=== PATIENT | male | born 1940 | race Caucasian/White ===

== ENCOUNTER → 2022-03-31 09:22 | Outpatient (BNVA) | payer OTHER, SELFPAY | PROVIDERS: PCP Internal Medicine; Visit Provider Psychiatry & Neurology Neurology | DX: G20 Parkinson's disease (principal) ==

== ENCOUNTER 2022-09-28 15:30 | Outpatient (AMB) | payer OTHER, SELFPAY ==
[2022-09-28 15:34] VITALS: BP 110/78; PULSE 94; O2SAT 98; BMI 26.5
--- NOTE | 2022-09-28 15:34 | MHC.OFFVIS ---
Intake Vital Signs 09/28/22 15:34 Height 5 ft 10 in Weight 185 lb BMI 26.5 BP 110/78 Blood Pressure Location Rt brachial Position Sitting Pulse 94 Pulse Source Pulse Oximeter Pulse Oximetry (%) 98 Oxygen Delivery Method Room Air Intake Visit Reasons: 6m follow up-confirmed Intake Note: Patient p;resents for follow up Allergies No Known Allergies [No Known Allergies*] Allergy (Unverified 09/28/22 15:35) Medication List - Last Reconciled 09/28/22 by Donya Burgos MD apixaban (Eliquis) 5 mg PO BID carbidopa-levodopa 25-100 mg 1 tab PO QID mecobalamin (vitamin B12) 1,000 mcg PO DAILY metformin 850 mg PO TID HPI HPI Comments History of Present Illness Details 81 y/o male with parkinsons disease comes for follow up . No change since last visit. He had 1 fall in a store - tripped on something on the floor. He is doing well on sinemet 25/100 qid. His main symptom was right UE tremors. He denies memory issues. He denies REM behavior disorder. He guzman sloud snoring but sleeps good. Mood is stable He is motivated. He denies drooling, voice is softer. He is slower in dressing showering and using utensils. Handwriting is good. Gait is slower He has occasional constipation.He denies hallucinations. No dizziness since his lisinopril was discontinued. [facility] Medical History Arthritis Diabetes Snoring Surgical History History of appendectomy Social History Alcohol intake: never Patient Tobacco Use Status: Never used Tobacco Physical Exam Vital Signs: Last Vital Signs Pulse 94 09/28/22 15:34 BP 110/78 09/28/22 15:34 Pulse Ox 98 09/28/22 15:34 Oxygen Delivery Method Room Air 09/28/22 15:34 BMI result Body Mass Index 26.5 Const Orientation/consciousness: patient oriented x3 Eyes Pupils: Equal, round and reactive pupils present Neuro Other: moderate decreased blink and facial expression No tremors Chandan Ue cog wheel rigidity L>R FFM and foot taps decreased moderately L>R Gait- slow, no arm swing on left stopped Speech- hypophonia and dysprosody General: patient oriented x3, moves all extremities and no focal motor deficits Cranial nerves: Yes Facial sensation intact/muscles of mastication intact, Yes Equal, round and reactive pupils present, Yes Bilaterally intact EOM present, Yes Nystagmus not present, Yes Normal facial strength present, Yes Midline tongue present, Yes Symmetric palate elevation present and Yes Ability to bilaterally elevate shoulders present Cognition (Neuro): normal cognition Motor exam (neuro): 5/5 motor strength present throughout Coordination: [id number] test normal Assessment & Plan Assessment & Plan (1) Idiopathic Parkinson's disease: Code(s): G20 - Parkinson's disease (2) Snoring: Code(s): R06.83 - Snoring Plan Sinemet 25/100 qid PT for gait and balance Will consider home sleep test Increase fluid intake Coding Level of Care Code Est Pt Level 4 (04116) Diagnoses Idiopathic Parkinson's disease G20 Snoring R06.83
== END 2022-09-28 15:52 | disposition home or self-care (01) ==
LOC: HO.HSM 15:30
PROVIDERS: PCP Internal Medicine; Visit Provider Psychiatry & Neurology Neurology
DX: G20 Parkinson's disease (principal); R06.83 Snoring
CPT/HCPCS: 99214

== ENCOUNTER → 2022-09-28 15:30 | Outpatient (BNVA) | payer OTHER, SELFPAY | PROVIDERS: PCP Internal Medicine; Visit Provider Psychiatry & Neurology Neurology | DX: G20 Parkinson's disease (principal) ==

== ENCOUNTER 2023-04-03 13:24 | Outpatient (AMB) | payer OTHER, SELFPAY ==
--- NOTE | 2023-04-03 13:37 | A.OFFVIS_ITS ---
Intake Vital Signs 04/03/23 13:40 Height 5 ft 10 in Weight 187 lb 6 oz BMI 26.9 BP 106/70 Blood Pressure Location Rt brachial Position Sitting Respiration 16 Pulse 96 Pulse Source Pulse Oximeter Pulse Oximetry (%) 98 Oxygen Delivery Method Room Air Intake Visit Reasons: 6m follow up - VM full unable to Conf. Intake Note: Pt presents to the office for a 6 month follow up for Parkinson's. Pt reports he's had more falls lately. I feel like I'm slowing down . Aerophysicist Required: No Allergies No Known Allergies [No Known Allergies*] Allergy (Unverified 04/03/23 13:38) Medication List - Last Reconciled 04/03/23 by Donya Burgos MD apixaban (Eliquis) 5 mg PO BID carbidopa-levodopa 25-100 mg 1 tab PO QID mecobalamin (vitamin B12) 1,000 mcg PO DAILY metformin 850 mg PO TID HPI HPI Comments History of Present Illness Details 82 y/o male with parkinsons disease come s for follow up .He had 2 falls in the past 4 mths . Both the falls were when he was wearing a boot for blisters in his right foot. He is doing well on sinemet 25/100 qid. His main symptom was right UE tremors. He denies memory issues. He denies REM behavior disorder. He guzman sloud snoring but sleeps good. Mood is stable He is motivated. He denies drooling, voice is softer. He is slower in dressing showering and using utensils. Handwriting is good. Gait is slower He has occasional constipation.He denies hallucinations. No dizziness since his lisinopril was discontinued. [facility] Medical History Snoring Arthritis Diabetes Surgical History History of appendectomy Social History Alcohol intake: never Patient Tobacco Use Status: Never used Tobacco Physical Exam Vital Signs: Last Vital Signs Pulse 96 04/03/23 13:40 Resp 16 04/03/23 13:40 BP 106/70 04/03/23 13:40 Pulse Ox 98 04/03/23 13:40 Oxygen Delivery Method Room Air 04/03/23 13:40 BMI result Body Mass Index 26.9 Const Orientation/consciousness: patient oriented x3 Eyes Pupils: Equal, round and reactive pupils present Neuro Other: moderate decreased blink and facial expression No tremors Chandan Ue cog wheel rigidity L>R FFM and foot taps decreased moderately L>R Gait- slow, no arm swing on left stopped Speech- hypophonia and dysprosody General: patient oriented x3, moves all extremities and no focal motor deficits Cranial nerves: Yes Facial sensation intact/muscles of mastication intact, Yes Equal, round and reactive pupils present, Yes Bilaterally intact EOM present, Yes Nystagmus not present, Yes Normal facial strength present, Yes Midline tongue present, Yes Symmetric palate elevation present and Yes Ability to bilaterally elevate shoulders present Cognition (Neuro): normal cognition Motor exam (neuro): 5/5 motor strength present throughout Coordination: [id number] test normal Assessment & Plan Assessment & Plan (1) Idiopathic Parkinson's disease: Code(s): G20 - Parkinson's disease (2) Snoring: Code(s): R06.83 - Snoring Plan Sinemet 25/100 qid PT for gait and balance Will consider home sleep test Increase fluid intake Orders: Orders PT Evaluation and Treatment Today G20 - Parkinson's disease Coding Level of Care Code Est Pt Level 4 (73183) Diagnoses Idiopathic Parkinson's disease G20 Snoring R06.83
[2023-04-03 13:40] VITALS: BP 106/70; PULSE 96; RESP 16; O2SAT 98; BMI 26.9
== END 2023-04-03 13:58 | disposition home or self-care (01) ==
PROVIDERS: PCP Internal Medicine; Visit Provider Psychiatry & Neurology Neurology
DX: G20.A1 Parkinson's disease without dyskinesia, without mention of fluctuations (principal); R29.6 Repeated falls; R06.83 Snoring
CPT/HCPCS: 99214

== ENCOUNTER → 2023-04-03 13:24 | Outpatient (BNVA) | payer OTHER, SELFPAY | PROVIDERS: PCP Internal Medicine; Visit Provider Psychiatry & Neurology Neurology | DX: R06.83 Snoring (principal) ==

== ENCOUNTER 2023-06-21 13:00 | Outpatient (RCR) | payer OTHER, SELFPAY ==
--- NOTE | 2023-06-06 16:20 | MHC.PT.EP ---
[facility] [place] Office [place] Office [place] Office [address] Casey Smith [address] [phone] F: [phone] F: [phone] F: [phone] F: [phone] Physical Therapy Plan of Care Date of Evaluation: 06/06/23 Date of Surgery: Diagnosis: This is an 82 yo male presenting to skilled PT with a script for PD, gait and balance. Assessment: This is an 82 yo male presenting to skilled PT with a script for PD, gait and balance. He reports 3 falls in the past 6 months. Two out of the three landed him in the ER with head injuries. His falls are from tripping mainly. 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 However in the past few years he has gotten very sedentary and feels like his BUE and BLE's are weak (L>R). He also reports some slight tremors in UE's. He does not use an AD but does report that he feels good holding onto a carriage in the grocery store. He has some aches and pains that mainly include his low back, pain is centralized and achy. Assessment reveals pain that ranges from up to a 6/10 at the worst. Patient demos decreased BLE ROM, strength of B LE's, impaired balance as evidenced by multiple outcome measures, impaired gait pattern and impaired posture with forward head and rounded shoulders. Based on functional limitations, impaired QOL and pain tolerance patient is a good candidate for skilled PT 2x/wk for 4wks. Frequency and Duration: The patient will be seen 2x/wk for 4wks Short Term Goals: I in HEP of BIG program at home on own when not at PT Demo good understanding of safety techniques with transfers, ambulation and stairs without evidence of falls Digital Printer Goals: Improve Greg SOPT times to 20 sec in all categories I with final HEP demonstrating safe techniques and good carryover Report 50% improvement in balance and strength Improve MMT by at least 1 grade for BLE's Treatment Plan: Modalities to reduce pain, spasms and effusion. Manual therapy to restore motion and function. Therapeutic exercise to improve strength and flexibility. Neuromuscular re-education for posture and balance. Therapeutic activities to return to functional activities of daily living. Electronically signed by: Starr Reeder PT Please sign and return to therapist. Thank you for your referral.
--- NOTE | 2023-07-26 11:36 | MHC.PT.DC ---
[facility] [place] Office [place] Office [address] Casey Smith [address] [phone] F: [phone] F: [phone] F: [phone] F: [phone] Physical Therapy Discharge Report Diagnosis: This is an 82 yo male presenting to skilled PT with a script for PD, gait and balance. Date of Surgery: Date of Evaluation: 06/06/23 Date of Discharge: 07/26/23 Treatments to Date: 4 Cancellations to Date: 0 No Shows to Date: 0 Discharge Status: Independent with HEP Patient Elected to Stop Discharge Summary: Patient came to PT eval and 3 additional visits. He had a fall and was following up with his PCP so PT was put on hold. Patient did not return to PT so chart was closed after 30 days. DC to HEP. Electronically signed by: Starr Reeder PT Please sign and return to therapist. Thank you for your referral.
== END 2023-07-26 11:37 | disposition home or self-care (01) ==
LOC: HO.PTCHIC 13:00
PROVIDERS: PCP Internal Medicine; Visit Provider Psychiatry & Neurology Neurology
DX: G20.A1 Parkinson's disease without dyskinesia, without mention of fluctuations (principal)
CPT/HCPCS: 97110; 97112; 97162

== ENCOUNTER 2023-10-06 11:35 | Outpatient (AMB) | payer OTHER, SELFPAY ==
--- NOTE | 2023-10-06 11:36 | MHC.OFFVIS ---
Vital Signs 10/06/23 11:41 Height 5 ft 10 in Weight 178 lb BMI 25.5 BP 112/62 Blood Pressure Location Lt brachial Position Sitting Pulse 95 Pulse Source Pulse Oximeter Pulse Oximetry (%) 98 Oxygen Delivery Method Room Air Intake Visit Reasons: f/u appt - Confirmed Intake Note: Patient presents for f/u. Feeling weak in the arms and legs. Having trouble sleeping at night. Allergies No Known Allergies [No Known Allergies*] Allergy (Verified 10/06/23 11:40) Medication List - Last Reconciled 10/06/23 by Donya Burgos MD apixaban (Eliquis) 5 mg PO BID carbidopa-levodopa 25-100 mg 2-1-2-1 tab(s), max 6 tabs per day, orally .; 30 days mecobalamin (vitamin B12) 1,000 mcg PO DAILY melatonin 3 mg PO BEDTIME metformin 850 mg PO TID HPI Comments Details: 82 y/o male with parkinsons disease comes for follow up .No falls since last visit. He feels weaker and slower His sinemet 25/100 was increased to 2-1-2-1 for past week His main symptom is right UE tremors. He denies memory issues. He denies REM behavior disorder. He has loud snoring and tosses and turns all night. Mood is stable He is motivated. He denies drooling, voice is softer. He is slower in dressing showering and using utensils. Handwriting is good. Gait is slower He has occasional constipation.He denies hallucinations. No dizziness since his lisinopril was discontinued. [facility] Medical History (Updated 10/06/23 @ 11:56 by Donya Burgos MD) Parkinson's disease without dyskinesia Snoring Arthritis Diabetes Surgical History History of appendectomy Social History Alcohol intake: never Patient Tobacco Use Status: Never used Tobacco Physical Exam Vital Signs: Last Vital Signs Pulse 95 10/06/23 11:41 BP 112/62 10/06/23 11:41 Pulse Ox 98 10/06/23 11:41 Oxygen Delivery Method Room Air 10/06/23 11:41 BMI result Body Mass Index 25.5 Const Orientation/consciousness: patient oriented x3 Eyes Pupils: Equal, round and reactive pupils present Neuro Other: moderate decreased blink and facial expression No tremors Chandan Ue cog wheel rigidity L>R FFM and foot taps decreased moderately L>R Gait- slow, no arm swing on left stopped Speech- hypophonia and dysprosody General: patient oriented x3, moves all extremities and no focal motor deficits Cranial nerves: Yes Facial sensation intact/muscles of mastication intact, Yes Equal, round and reactive pupils present, Yes Bilaterally intact EOM present, Yes Nystagmus not present, Yes Normal facial strength present, Yes Midline tongue present, Yes Symmetric palate elevation present and Yes Ability to bilaterally elevate shoulders present Cognition (Neuro): normal cognition Motor exam (neuro): 5/5 motor strength present throughout Coordination: [id number] test normal Assessment & Plan Assessment & Plan (1) Parkinson's disease without dyskinesia: Code(s): G20.A1 - Parkinson's disease without dyskinesia, without mention of fluctuations Category: Medical (2) Snoring: Code(s): R06.83 - Snoring Category: Medical Plan Sinemet 25/100 2 tabs at 10am, 6pm , 1 tab 2 pm and 10 pm - will consider 2 tabs qid melatonin 3mg qhs discussed fall prevention Increase fluid intake Medications: New melatonin 3 mg PO BEDTIME 30 tabs 6RF sleep Coding Level of Care Code Est Pt Level 4 (12687) Complex EM visit Add On G2211 Diagnoses Parkinson's disease without dyskinesia G20.A1 Snoring R06.83
[2023-10-06 11:41] VITALS: BP 112/62; PULSE 95; O2SAT 98; BMI 25.5
== END 2023-10-06 12:10 | disposition home or self-care (01) ==
PROVIDERS: PCP Internal Medicine; Visit Provider Psychiatry & Neurology Neurology
DX: G20.A1 Parkinson's disease without dyskinesia, without mention of fluctuations (principal); R06.83 Snoring
CPT/HCPCS: 99214

== ENCOUNTER → 2023-10-06 11:35 | Outpatient (BNVA) | payer OTHER, SELFPAY | PROVIDERS: PCP Internal Medicine; Visit Provider Psychiatry & Neurology Neurology ==

== ENCOUNTER 2023-11-03 12:49 | Outpatient (RCR) | payer MEDICARE, SELFPAY | END 2024-02-09 13:41 | disposition home or self-care (01) | LOC: HO.WCC 12:49 | PROVIDERS: PCP Internal Medicine; Visit Provider Physician Assistant | DX: E11.621 Type 2 diabetes mellitus with foot ulcer (principal); L97.512 Non-pressure chronic ulcer of other part of right foot with fat layer exposed; I48.91 Unspecified atrial fibrillation; G20.A1 Parkinson's disease without dyskinesia, without mention of fluctuations; Z79.84 Long term (current) use of oral hypoglycemic drugs; Z79.01 Long term (current) use of anticoagulants; L84 Corns and callosities; Z79.2 Long term (current) use of antibiotics; Z87.891 Personal history of nicotine dependence | CPT/HCPCS: 11042; 97597; 99212; 99213 ==

== ENCOUNTER 2024-05-21 10:14 | Outpatient (AMB) | payer OTHER, SELFPAY ==
--- NOTE | 2024-05-21 11:03 | MHC.OFFVIS ---
Vital Signs 05/21/24 11:04 Height 5 ft 10 in Weight 162 lb BMI 23.2 Pulse 92 Pulse Source Pulse Oximeter Pulse Oximetry (%) 96 Oxygen Delivery Method Room Air Intake Visit Reasons: 6 MONTH F/U Intake Note: Patient presents follow up Parkinson's. Patient states getting weaker in extremities Allergies No Known Allergies [No Known Allergies*] Allergy (Verified 10/06/23 11:40) HPI Comments Details: 83 y/o male with Parkinsons disease comes for follow up. He was at the ER in [facility] due to the flu 2 weeks ago. No falls since last visit. He feels weaker and slower. His sinemet 25/100 was increased to 2-1-2-1 for past week and his main symptom is RUE tremors. Sinemet schedule 2 at Breakfast 9am, 1 at 3pm, 2 at 7pm with dinner, 1 at bedtime around 10pm. Discussed the importance of taking this medication with a snack and no protien products with daughter and patient. He denies memory issues. He denies REM behavior disorder. He sleeps on his back and has trouble sleeping on the side, will sleep in his chair and c/o LBP. He has dry mouth due to head congestion, discussed taking nasal saline, zinc, vit d. His blood sugars are controlled with metformin 850mg PO BID. He snores loudly and tosses and turns all night along with coughing up phlegm, uses melatonin 3mg and it helps with sleep. He declined taking eliquis due to insurance costs. His mood is stable. He is motivated. He denies drooling, or dysphagia, his voice is soft. He is slow to dress, shower, and use utensils. His handwriting is legible. Gait is slower, with stooped posture. He has occasional constipation, takes prunes and prune juice, and miralax. He denies hallucinations. No dizziness since his lisinopril was discontinued. No smoking no alcohol. [facility] Medical History Parkinson's disease without dyskinesia Snoring Arthritis Diabetes Surgical History History of appendectomy Social History Alcohol intake: never Patient Tobacco Use Status: Never used Tobacco Review of Systems Const All systems reviewed & are unremarkable except as noted in HPI and below Physical Exam Vital Signs: Last Vital Signs Pulse 92 05/21/24 11:04 Pulse Ox 96 05/21/24 11:04 Oxygen Delivery Method Room Air 05/21/24 11:04 BMI result Body Mass Index 23.2 Const Orientation/consciousness: patient oriented x3 Eyes Pupils: Equal, round and reactive pupils present Neuro Other: moderate decreased blink and facial expression No tremors Chandan Ue cog wheel rigidity L>R FFM and foot taps decreased moderately L>R Gait- slow, no arm swing on left stopped Speech- hypophonia and dysprosody General: patient oriented x3, moves all extremities and no focal motor deficits Cranial nerves: Yes Facial sensation intact/muscles of mastication intact, Yes Equal, round and reactive pupils present, Yes Bilaterally intact EOM present, Yes Nystagmus not present, Yes Normal facial strength present, Yes Midline tongue present, Yes Symmetric palate elevation present and Yes Ability to bilaterally elevate shoulders present Cognition (Neuro): normal cognition Motor exam (neuro): 5/5 motor strength present throughout Coordination: [id number] test normal Assessment & Plan Assessment & Plan (1) Parkinson's disease without dyskinesia: Code(s): G20.A1 - Parkinson's disease without dyskinesia, without mention of fluctuations Category: Medical Qualifiers: Fluctuating manifestations: unspecified whether manifestations fluctuate Qualified Code(s): G20.A1 - Parkinson's disease without dyskinesia, without mention of fluctuations (2) Snoring: Code(s): R06.83 - Snoring Category: Medical (3) Chest congestion: Code(s): R09.89 - Other specified symptoms and signs involving the circulatory and respiratory systems Category: Medical (4) Flu: Code(s): J11.1 - Influenza due to unidentified influenza virus with other respiratory manifestations Category: Medical (5) Hearing difficulty of both ears: Code(s): H91.93 - Unspecified hearing loss, bilateral Category: Medical Plan Sinemet 25/100 2 tabs at 9am, 1 tab 3pm, 2 tab at 7pm, 1 tab at 10pm. Sleep initiation Melatonin 3mg po at bedtime Discussed fall prevention and using assisted devices. Constipation increase fluid intake, and prune juice, miralax as needed. Hearing referral Xray for possible pnuemonia Orders: Orders XR chest 2V Today J11.1 - Influenza due to unidentified influenza virus with other respiratory manifestations, R09.89 - Other specified symptoms and signs involving the circulatory and respiratory systems Referrals Ear/Nose/Throat Referral H91.93 - Unspecified hearing loss, bilateral Medications: Refilled melatonin 3 mg PO BEDTIME 30 tabs 6RF sleep carbidopa-levodopa 25-100 mg 2-1-2-1 tab(s), max 6 tabs per day, orally .; 180 tabs 6RF 30 days Patient Instructions: CD/LD (Sinemet) can be taken one hour prior to meals, with a snack such as a cookie or cracker, and a glass of juice. Do not take any meat / protein products with this medication. 2 tablets at 9am, 1 tablet at 3pm, 2tablet at 7pm, 1 tablet at 10pm. Drink plenty of water with this medication as it can cause constipation. Coding Level of Care Code Est Pt Level 4 (64820) Diagnoses Parkinson's disease without dyskinesia, unspecified whether manifestations fluctuate G20.A1 Fluctuating manifestations: unspecified whether manifestations fluctuate Snoring R06.83 Chest congestion R09.89 Flu J11.1 Hearing difficulty of both ears H91.93 Time Spent (min) 35 Comment Improving
[2024-05-21 11:04] VITALS: PULSE 92; O2SAT 96; BMI 23.2
--- OUTSIDE RECORDS SUMMARY | 2024-05-21 12:23 | XMS_ITS ---
Author Organization [facility] Address [address] [place] [address] Care Team Providers Care Bioinformatics Technician Name Role Phone Elidia Rosa MD Primary Care Provider Unavailabl e Black, Jade Unavailable [phone] REASON FOR VISIT No show Encounters Encounter Location Date Provider Diagnosis [facility] [address] [place] [address] 05/13/2024 Jade Black Plan Of Treatment No Information Progress Notes * TYLER Wesley:[birth year] (83 yo M)Acc No.[id number]:05/13/2024 Patient:?Kirby MULLIGAN :1940???Age:83 Y???Sex:Male Address:[address] [place] [address], [address] * * Date:?
--- OUTSIDE RECORDS SUMMARY | 2024-05-21 12:23 | XMS_ITS | Continuity of Care Document ---
Author Organization [facility] Address [address] [place] [id number]- Care Team Providers Care Plating Foreman Name Role Phone Elidia Rosa MD Primary Care Physician [phone] Encounter [facility] Date(s): 05/02/24 - 05/03/[address] [address]- Encounter Diagnosis Cough(Final) - 05/02/24 Discharge Disposition: A-D/C Home Attending Physician: Brook Barraza MD Admitting Physician: Brook Barraza MD Referring Physician: Not on Staff, Referring MD Encounter Type: Disch ES Allergies, Adverse Reactions, Alerts Substance Criticality Severity Reaction Reaction Severity Status simvastatin cramps Active Immunizations Given and Recorded Vaccine Date Status Refusal Reason influenza virus vaccine, inactivated 01/01/24 Give n influenza virus vaccine, inactivated 12/27/22 Give n influenza virus vaccine, inactivated 01/17/22 Baldev rded influenza virus vaccine, inactivated 03/18/21 Baldev rded influenza virus vaccine, inactivated 12/11/19 Give n influenza virus vaccine, inactivated 12/25/17 Give n influenza virus vaccine, inactivated 1 12/27/16 Gi teo influenza virus vaccine, inactivated 01/19/16 Baldev rded influenza virus vaccine, inactivated 11/30/15 Baldev rded influenza virus vaccine, inactivated 2 02/07/13 Gi teo influenza virus vaccine, inactivated 02/07/11 Give n influenza virus vaccine, inactivated 12/02/08 Give n influenza virus vaccine, inactivated 3 01/23/08 Gi teo SARS-CoV-2(COVID-19)mRNA-LNP vac([id number]) 02/02/23 Recorded tetanus/diphtheria/pertussis, acel(Tdap) 12/27/22 Given tetanus/diphtheria/pertussis, acel(Tdap) 4 02/07/13 Given [id number] 12y+ bivalent booster vax 01/17/22 Recorded SARS-CoV-2 (COVID-19) mRNA BNT-162b2 vac 03/18/21 Recorded SARS-CoV-2 (COVID-19) mRNA BNT-162b2 vac 08/01/20 Recorded SARS-CoV-2 (COVID-19) mRNA BNT-162b2 vac 07/11/20 Recorded SARS-CoV-2 (COVID-19) mRNA BNT-162b2 vac 07/08/20 Recorded Influenza Virus Vaccine (oldterm) 12/23/18 Recorde d Fluzone (oldterm) 5 01/24/15 Recorded Fluzone (oldterm) 02/11/14 Given pneumococcal 13-valent vaccine 07/22/14 Given Zostavax (oldterm) 6 05/31/13 Given FluLaval (oldterm) 7 12/29/11 Given FluLaval (oldterm) 01/18/10 Given Pneumococcal Vaccine (oldterm) 03/22/07 Given Influenza Inactive (IM) (oldterm) 01/19/07 Given tetanus-diphtheria toxoids (Td) 04/16/03 Given 1Travel Destination: [id number] 2Result Comment: [02/07/2013] Ordered by Dr. Elidia Rosa 3Admin Note: ledy kennyofi pasteur 4Result Comment: [02/07/2013] Ordered by Dr. Elidia Rosa 5Location History: [facility] 6Result Comment: [05/31/2013] [facility] 7Admin Note: Gave the VIS 09-19-2011 Medications Blood Pressure Monitor See Instructions, # 1 each, Maintenance, Diagnosis is hypertension and diabetes. Check blood pressure daily and as directed. Contact physician if systolic blood pressure is less than 100 or greater than 160 or diastolic blood pressure is greater than 100., 04/02/20 12:02:00 PM EST, Supply, 178, cm,04/02/20 12:01:00 EST, Height, 91, kg, 04/02/20 10:52:00 EST, Dry Weight Start Date: 04/02/20 Status: Ordered Quantity: 1.0 Unit: each Repeat number: 1 carbidopa-levodopa 25 mg-100 mg oral tablet 1 tablet, By Mouth, 4 times a day, # 90 tablet, 0 Refills, Maintenance, 12/25/17 10:45:07 AM EDT, Tablet Start Date: 12/25/17 Status: Ordered Quantity: 90.0 Unit: tablet Repeat number: 1 cyanocobalamin 1000 mcg oral tablet 1,000 mcg, 1, tablet, By Mouth, Daily, # 90 tablet, Refills 3, Tot. Refills 3, Maintenance, 213:18:00 PM EDT, Route to Pharmacy Electronically, [facility] #[id number], 178, cm, 12/18/20 14:06:00 EDT, Height, 91, kg, 04/02/20 10:52:00 EST, Dry Weight Start Date: 12/18/20 Stop Date: 12/13/21 Status: Ordered Quantity: 90.0 Unit: tablet Repeat number: 4 Diabetic shoes and inserts for E11.9 Diabetic shoes and inserts for E11.9, See Instructions, # 1 each, Refills 3, Tot. Refills 3, Maintenance, Wear during the day, 04/23/21 8:25:00 AM EST, Supply Start Date: 04/23/21 Status: Ordered Quantity: 1.0 Unit: each Repeat number: 4 Indication: Type 2 diabetes mellitus without complications Eliquis 5 mg oral tablet 1 tablet, By Mouth, 2 times a day, # 180 tablet, 3 Refills, Maintenance, 09/18/23 4:03:00 PM EDT, [facility] #[id number], 178, cm, 07/19/23 11:47:00 EDT, Height Start Date: 09/18/23 Status: Ordered Quantity: 180.0 Unit: tablet Repeat number: 1 Freestyle Lite Lancets See Instructions, # 200 each, Refills 5, Tot. Refills 5, Maintenance, DM Type-2. To check BS 2x/day, 02/27/14 10:34:37 AM EST, Compound Start Date: 02/27/14 Status: Ordered Quantity: 200.0 Unit: each Repeat number: 6 Freestyle Lite Test Strips See Instructions, # 200 each, Refills 5, Tot. Refills 5, Maintenance, DM Type-2. To check BS 2x/day, 02/27/14 10:31:53 AM EST, Compound Start Date: 02/27/14 Status: Ordered Quantity: 200.0 Unit: each Repeat number: 6 MetFORMIN (Eqv-Glucophage XR) 500 mg oral tablet, extended release 3 tablet = 1,500 mg, By Mouth, Daily, # 270 tablet, 3 Refills, Maintenance, 07/19/23 11:59:00 AM EDT,[facility] #[id number], Partial fill upon patient request if the prescription is for a schedule II opioid drug., 178, cm, 07/19/23 11:47:00 EDT, Height Start Date: 07/19/23 Stop Date: 07/13/24 Status: Ordered Quantity: 270.0 Unit: tablet Repeat number: 4 Vitamin D3 1000 intl units oral capsule 1 capsule = 25 mcg, By Mouth, Daily, # 100 capsule, 0 Refills, Maintenance, 06/21/22 3:00:00 PM EDT, Capsule, Partial fill upon patient request if the prescription is for a schedule II opioid drug. Start Date: 06/21/22 Status: Ordered Quantity: 100.0 Unit: capsule Repeat number: 1 Walker See Instructions, # 1 each, Maintenance, Use the walker as needed for unsteadiness due to Parkinson's disease., 01/01/24 3:51:00 PM EDT, Supply Start Date: 01/01/24 Status: Ordered Quantity: 1.0 Unit: each Repeat number: 1 Indication: Parkinson's disease without dyskinesia, without mention of fluctuations Problem List Condition Confirmation Course Effective Dates Status Health Status Informant AF (atrial fibrillation) Confirmed Active Low vitamin D level Confirmed Active Trouble walking Confirmed Active History of basal cell carcinoma Confirmed 12/29/11 Active Hypercoagulable state Confirmed Active Hypogammaglobulinemia Confirmed Active Actinic keratoses Confirmed Active Type 2 diabetes mellitus with diabetic neuropathy Confirmed Active Parkinson's disease Confirmed Active Peripheral arterial disease Confirmed Active Colon polyp Confirmed Active Restless legs Confirmed Active Senile purpura Confirmed Active Type 2 diabetes mellitus with stage 3a chronic kidney disease Confirmed Active Vitamin B12 deficiency Confirmed 03/26/08 Active Results Radiology Reports * Exam Date Time Procedure Performing Provider Status 05/02/24 11:51 PM Chest 2 Views Frontal and Lat EmeliaDaniel crawley; Auth (Verified) Notes: (Chest 2 Views Frontal and Lat) Reason For Exam: Shortness of Breath, Fever;Other: RESULT: Chest 2 Views Frontal and Lat Chest 2 Views Frontal and Lat Reason: Shortness of Breath, Fever; influenza A+ Clinical Question(s): Pneumonia COMPARISON: 03/18/2023 FINDINGS: LINES AND TUBES: None. LUNGS AND PLEURA: Small left pleural effusion, similar to prior best visualized on lateral view. Left basilar atelectasis. Probable right lower lobe atelectasis, unchanged from prior. No pneumothorax. HEART, MEDIASTINUM AND SUNITA: Heart is normal in size. Normal mediastinal and hilar contour. BONES AND SOFT TISSUES: No acute abnormality. Mild degenerative changes of the visualized spine. IMPRESSION: Small left pleural effusion with adjacent atelectasis. Unchanged right lower lobe atelectasis. Superimposed right basilar pneumonia cannot be completely excluded. Clinical correlation is recommended. I have personally reviewed the images and I agree with this report. WSN: [id number] Ordering Physician: Bobbi Cotton Dictated By: Malissa Dumont DO Dictated Date/Time: 05/03/24 8:19 am Reviewed By: Joe Avalos MD, V Signed By: Joe Avalos MD, V Signed Date/Time: 05/03/24 8:24 am Transcribed By: AB Transcribed Date/Time: 05/03/24 8:13 am Vital Signs Most recent to oldest [Reference Range]: 1 2 3 Height 178 cm (05/02/24 6:31 PM) Weight 82 kg (05/02/24 6:31 PM) Oxygen Saturation [94-100 %] 99 % (05/03/24 1:00 AM) 99 % (05/02/24 6:31 PM) 100 % (05/02/24 6:21 PM) Pulse Rate [55-90 bpm] 81 bpm (05/03/24 1:00 AM) 90 bpm (05/02/24 6:31 PM) 78 bpm (05/02/24 6:21 PM) Body Mass Index [18.5-24.99 kg/m2] 25.88 kg/m2 *H* (05/02/24 6:31 PM) Blood Pressure [90-138/55-84 mm Hg] 122/64mm Hg (05/03/24 1:00 AM) 116/72mm Hg (05/02/24 6:31 PM) Respiratory Rate [16-30 br/min] 18 br/min (05/03/24 1:00 AM) 18 br/min (05/02/24 6:31 PM) 18 br/min (05/02/24 6:21 PM) Temperature [96.8-100.4 DegF] 98.3 DegF (05/03/24 1:00 AM) 98.9 DegF (05/02/24 6:31 PM) Mode of Delivery (Oxygen) Room air (05/03/24 1:00 AM) Room air (05/02/24 6:31 PM) Room air (05/02/24 6:21 PM) Blood pressure sites Arm, left (05/02/24 6:31 PM) Temperature Route Oral (05/03/24 1:00 AM) Oral (05/02/24 6:31 PM) Dry Weight 82 kg (05/02/24 6:31 PM) Weight Obtained Via Patient/family state d (05/02/24 6:31 PM) Dry Weight Obtained Via Patient/family s tated (05/02/24 6:31 PM) Social History Social History Type Response Smoking Status Former smoker; Start ed at age: 17; Stopped at age: 20; entered on: 07/22/14 Sex Sex Representation Male (finding) EKG study * Event Display: ECG 12-Lead Authored Date: Please click on pdf link to open report * Event Display: ECG 12-Lead Authored Date: Ventricular Rate: 76 BPM QRS Duration: 100 ms Q-T Interval: 392 ms QTC Calculation(Bazett): 441 ms R [place]: -49 degrees T [place]: 28 degrees Atrial fibrillation Left anterior fascicular block Abnormal ECG When compared with ECG of 21-Jun-2022 14:19, Left anterior fascicular block is now Present Confirmed by ANNE LARSON ([id number]) on 05/03/2024 10:01:38 AM [place]: ANNE LARSON Note * Christi PHIPPS, Brook Aparicio: PERFORM Event Display: Patient Education Leaflets Authored Date: [id number] Influenza (Adult) ?? [id number] Influenza (Adult) Updated for the flu season Influenza is also called the flu. It's a viral illness that affects the air passages of your nose, sinuses, throat, and lungs. It's more serious than the common cold. The flu can easily be passed from one person to another. It is very contagious. It may be spread through the air by coughing and sneezing. It can also be spread by touching the sick person and then touching your own eyes, nose, or mouth. The flu starts 1 to 4 days after you are exposed to the flu virus. Symptoms usually last for about 3 days, but it can take 1 to 2 weeks to fully recover. You usually don???t need to take antibiotics unless you are at high risk for or have a complication from a bacterial infection. This might be an ear or sinus infection or pneumonia. Flu symptoms may be mild or severe. They can include extreme tiredness (wanting to stay in bed all day), chills, fevers, muscle aches, soreness with eye movement, headache, and a dry, hacking cough. Antiviral medicine for the flu is available by prescription. If you start taking it within 48 hours, it may help reduce how long your symptoms last and how severe they are. Your provider may do a test to find out if you have influenza and which strain you have. Home care Follow these guidelines when caring for yourself at home: ??? Stay away from cigarette smoke, whether it's yours or other people???s. ??? Acetaminophen or ibuprofen will help ease your fever, muscle aches, and headache. Don???t give aspirin to anyone younger than 18 who has the flu. This can cause a serious condition called Nilsa syndrome. ??? Nausea, loose stools, and loss of appetite are common with the flu. Eat light meals. Drink 6 to 8 glasses of liquids every day. Good choices are water, sport drinks, soft drinks without caffeine, juices, tea, and soup. Extra fluids will also help loosen secretions in your nose and lungs. ??? Llwr-pzr-bbrizio cold medicines will not make the flu go awayfaster. But the medicines may help with coughing, sore throat, and congestion in your nose and sinuses. Don???t use a decongestant if you have high blood pressure. ??? Stay home until your fever has been gone for at least 24 hours without using medicine to reduce fever. ??? Drink enough fluids so that you do not become dehydrated. ??? Take warm, steamy showers to help soothe your cough. ??? If you have a sore throat, gargling with warm salty water, sucking on an ice cube, drinking hot water with honey and freshly squeezed lemon juice can help. ?? Follow-up care Follow up with your healthcare provider, or as advised, if you're not getting better over the next week. If you're age 50 or older, talk with your provider about getting a pneumococcal vaccine. You shouldalso get vaccinated against pneumococcal pneumoniae at other ages if you have a weak immune system,chronic asthma, COPD (chronic obstructive pulmonary disorder), or certain other conditions. With very few exceptions, all adults should get a flu vaccine every fall. November and December are generally good times to get vaccinated. Ask your provider about this. ?? When to get medical advice Call your healthcare provider right away if you have the flu and any of these occur: ??? Cough with lots of colored mucus (sputum) or blood in your mucus ??? Chest pain, shortness of breath, wheezing, or trouble breathing ??? Severe headache, or face, neck, or ear pain ??? New rash??with fever ??? Fever of 100.4??F (38??C)??or higher, or as??advised by your provider ??? Confusion, behavior change, or seizure ??? Severe weakness or dizziness ??? You get a new??fever or cough aftergetting better for a few days Also call your provider if you have flu symptoms and have a weakened immune system or are taking medicines that can weaken your immune system. These include steroids and certain anti-inflammatory medicines. ?? Last Reviewed Date: 2023 ?? [id number] The [employer]. All rights reserved. This information is not intended as a substitute for professional medical care. Always follow your healthcare professional's instructions. ?? Patient Care team information Care Team Personnel Name: Elidia Rosa MD Position: S Physician - Primary Care Member Role: PCP Address: [address] [place] [address] [place] [address]- [place] [employer]: Name: Dony Bella Position: S Outreach Member Role: Lifetime Consulting Physician Care Team Related Persons Name: TISHA SCOTT Insurance Providers Guarantor name: NANDO SCOTT Health Plan Information #: 1 Payer: [employer] Member Number: [id number] Policy Number: NA Group Number: [id number] Health Plan Information #: 2 Payer: [employer] Member Number: [id number] Policy Number: NA Group Number: [id number]
--- OUTSIDE RECORDS SUMMARY | 2024-05-21 12:23 | XMS_ITS ---
Author Organization [facility] Address [address] [place] [address] Care Team Providers Care Golf Superintendent Name Role Phone Elidia Rosa MD Primary Care Provider Jade Arenas [phone] Encounters Encounter Location Date Provider Diagnosis [facility] [address] [place] [address] 05/13/2024 Jade Blandon Plan Of Treatment No Information Progress Notes * Mic SCOTTOB:[birth year] (83 yo M)Acc No.[id number]:05/13/2024 Progress Notes Patient:Kirby ROLAND Provider:?Jade Blandon DPM :1940???Age:83 Y???Sex:Male Dmitriy e:05/13/2024 Address:[address] [place], [place] [id number] Pcp:Elidia Rosa MD Subjective: * Chief Complaints: * ??? * Medical History:? Objective: * Vitals:? Assessment: Plan: * Treatment: * Images: * The named appointment provid er may or may not be the originator of this progress note, and it is not deemed complete until electronically signed by the appointment provider. Sign off status: Pending * Provider:?Jade Blandon DPM Date:?2024 Generated for Nicole griffith/Juan/eTransmitting on:?05/21/2024 12:23 PM EST
--- OUTSIDE RECORDS SUMMARY | 2024-05-21 12:24 | XMS_ITS | Patient Health Record ---
[facility] Address [address] [facility] [place] [address] Care Team Providers Care Card Hanger Name Role Phone Elidia Rosa MD Primary Care Provider Unavailabl e BarberOpale Unavailable [phone] Ben Royal Unavailable [phone] Allergies No Known Allergies Results Component Value Reference Range Notes HEMOGLOBIN A1C (GLYCOHEMOGLO BIN) Reviewed date:07/27/2023 08:03:55 AM Interpretation: Performing Lab: Notes/Report: HEMOGLOBIN A1C (HH) 7.4 HEMOGLOBIN A1C (GLYCOHEMOGLO BIN) Reviewed date:02/19/2024 02:41:43 PM Interpretation: Performing Lab: Notes/Report: TOTAL HEMOGLOBIN (HGBA1C) 6.4 X ray : Foot, right 3V Reviewed date:07/27/2023 10:52:26 AM Interpretation:See Examination above Performing Lab: Notes/Report: See Examination above HEMOGLOBIN A1C (GLYCOHEMOGLO BIN) Reviewed date:04/18/2024 10:40:42 AM Interpretation: Performing Lab: Notes/Report: HEMOGLOBIN A1C % (HH) 6.4 Reason For Referral No Information Medications Medication SIG (Take, Route, Frequency, Duration) Notes Start Date End Date Status Augmentin 500-125 MG as directed Orally every 12 hrs for 10 days 05/01/2017 Not-Taking Eliquis Active Doxycycline Hyclate 100 MG 1 tablet Orally Once a day for 10 days 08/30/2022 Not-Taking Augmentin 500-125 MG as directed Orally every 12 hrs for 10 days 12/20/2016 Not-Taking Doxycycline Hyclate 100 MG 1 capsule Orally Once a day for 10 day(s) 10/11/2022 Not-Taking Keflex 500 MG 1 capsule Orally Twi ce a day for 10 day(s) 2015 Not-Taking Extra Depth Orthopedic Shoes (1 Pair) with Customized Heat Molded Multidensity Innersoles (3 Pair) as directed Dx: NIDDM/Polyneuropathy (E11.42), Hammertoe Foot Deformity (M20.41,M20.42), 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 -please off 02/19/2024 Active Walking Boot/Pneumatic As directed Wear Daily for Until further notice 05/23/2019 Not-Jonathan ing Doxycycline Hyclate 100 MG 1 capsule Orally Once a day for 10 day(s) 10/27/2023 Active rOPINIRole HCl 0.25 MG 1 tablet Orally O nce a day Not-Taking Extra Depth Orthopedic Shoes (1 Pair) with Customized Heat Molded Multidensity Innersoles (3 Pair) as directed Dx: NIDDM/Polyneuropathy (E11.42), Hammertoe Foot Deformity (M20.41,M20.42), Preulcerative Skin Lesion(s) (L85.1 10/05/2020 Not-Taking Lisinopril 10 MG TO BE ADMINISTERED B Y PHARMACIST FOR IMMUNIZATION Oral for 30 Not-Jonathan ing Ammonium Lactate 12 % 1 application Exte rnally to affected areas of dry skin to feet except for between the toes Twice a day for 30 days Active Extra Depth Orthopedic Shoes (1 Pair) with Customized Heat Molded Multidensity Innersoles (3 Pair) as directed Dx: NIDDM/Polyneuropathy (E11.42), Hammertoe Foot Deformity (M20.41,M20.42), Preulcerative Skin Lesion(s) (L85.1 Not-Taking Carbidopa-Levodopa 25-100 MG 1 tablet Orally Three times a day Active Lisinopril Not-Takin g Iodosorb Active Extra-Depth Diabetic Shoes with 3 Pair Custom heat-molded multi-density innersoles . for 1 year . Dx:metatarsalgia 4th Right with preulcerative lesion please offload with korex for . Not-Taking Cipro 500 MG 1 tablet Orally Twic e a day for 10 day(s) 03/10/2017 Not-Taking Vitamin B12 100 MCG 1 tablet Orally Once a day Active Colcrys 0.6 MG 1 tablet Orally Once a day for 10 days 05/23/2019 Not-Taking metFORMIN HCl 850 MG TO BE ADMINISTERED BY PHARMACIST FOR IMMUNIZATION Oral Twice a day Active Aspirin 81 MG 1 tablet Orally Once a day Not-Taking Clindamycin HCl 300 MG 1 capsule Orally every 12 hrs for 10 days 10/17/2022 Not-Taking Immunizations Vaccine Route Administration Date Status Comme nts COVID-19 Pfizer BioNTech Vaccine Unknown 01/17/2022 Administered 1st 07/11/2020 2nd 07/20/2020 3rd 03/18/2021 Influenza Unknown 12/29/2015 Administered Influenza Unknown 12/20/2016 Refused Pt getting flu shot next week Influenza Unknown 12/23/2016 Administered Influenza Unknown 12/25/2017 Administered Influenza Unknown 01/14/2019 Administered Influenza Unknown 01/05/2023 Administered Social History Tobacco Use: Social History Observation Description Date Details (start date - stop date) Never Smoker NA - NA Tobacco use other than smoking: Question Answer Notes Are you an other tobacco user? No Tobacco Control (Standard) Question Answer Notes Tobacco use: Nonsmoker Additional Findings: Tobacco non-user Ex-cigaret te smoker AUDIT-C (Standard) Question Answer Notes Did you have a drink containing alcohol in the p ast year? No Points 0 Interpretation Negative Problems Problem Type SNOMED Code ICD Code Onset Dates Problem Status W/U Status Risk Notes Problem Acquired hammer toe of right foot (1192033514809302 ) Other hammer toe(s) (acquired), right foot (M20.41) Active confirmed Problem Localized, primary osteoarthritis of the ankle and/or foot (683915914) Primary osteoarthritis, left ankle and foot (M19.072) Active confirmed Problem Acquired hammer toe of left foot (2642049527096732 ) Other hammer toe(s) (acquired), left foot (M20.42) Active confirmed Problem Polyneuropathy due to type 2 diabetes mellitus (717630973) Type 2 diabetes mellitus with diabetic polyneuropathy (E11.42) Active confirmed Problem 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, 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) Active confirmed Problem Atherosclerosis of houl[place] arteries of the extremities (232105601803601) Atherosclerosis of [place]oul[place] artery of both lower extremities, with unspecified presence of clinical manifestation (I70.203) Active confirmed Problem Plantarflexion deformity of right foot (5411679555793790 ) Plantar flexed metatarsal bone of right foot (M21.6X1) Active confirmed Problem Neuropathic diabetic ulcer - foot () 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) Active confirmed Response to treatment Problem Neuropathic diabetic ulcer - foot () Neuropathic ulcer of right foot, limited to breakdown of skin (L97.511) Active confirmed Response to treatment -,Improvem ent Vital Signs Blood pressure diastolic 72 mm Hg 04/18/2024 Height 5 ft 10 in in 04/18/2024 Blood pressure systolic 128 mm Hg 04/18/2024 Weight 180 lbs 04/18/2024 BMI 25.82 kg/m2 04/18/2024 Procedures Procedure Date Ordered Date Performed Result Body Sit e 20656- Debride <25 sq cm 06/15/2023 N/A 04819-LQZC SKIN LESIONS, OVER 4 06/15/2023 N/A K7552-ZXWDUUFL DYSTROPHIC NAILS ANY # 06/15/2023 N/A 11794-KZTESKP SKIN/TISSUE 07/27/2023 N/A 15792-ZWSYZNF SKIN/TISSUE 08/16/2023 N/A 67104- Debride <25 sq cm 08/31/2023 N/A 96118-JIYX SKIN LESIONS, OVER 4 08/31/2023 N/A H5165-OHTHDLMC DYSTROPHIC NAILS ANY # 08/31/2023 N/A 53468-GMYVUEK SKIN/TISSUE 09/18/2023 N/A 89767-LPLQKXV SKIN/TISSUE 10/27/2023 N/A 32933-QXPU SKIN LESIONS, OVER 4 11/09/2023 N/A J3641-DHEFKYPJ DYSTROPHIC NAILS ANY # 11/09/2023 N/A 23608-CGSRBMT SKIN/TISSUE 02/19/2024 N/A 59479-HBBR SKIN LESIONS, OVER 4 02/19/2024 N/A D0805-CZTLVEEV DYSTROPHIC NAILS ANY # 02/19/2024 N/A 14025-KMTHARM SKIN/TISSUE 03/01/2024 N/A 73865- Debride <25 sq cm 03/21/2024 N/A 09662- Debride <25 sq cm 04/04/2024 N/A 33426- Debride <25 sq cm 04/18/2024 N/A Encounters Encounter Location Date Provider Diagnosis [address] [address] 06/15/2023 Jade Black Neuropathic ulcer of right foot, limited to breakdown of skin L97.511 and Type 2 diabetes mellitus with diabetic polyneuropathy E11.[address] [address] 07/27/2023 Jade Black Type 2 diabetes mellitus with diabetic polyneuropathy E11.42 ; Plantarflexion deformity of right foot M21.6X1 ; Neuropathic ulcer with fat layer exposed L98.492 ; Hypertrophy of bone, right ankle and foot M89.371 and Hammer toe of right foot M20.[address] [address] 08/16/2023 Jade Black Type 2 diabetes mellitus with diabetic polyneuropathy E11.42 and Neuropathic ulcer with fat layer exposed L98.[address] [address] 08/31/2023 Jade Black Neuropathic ulcer of right foot, limited to breakdown of skin L97.511 and Type 2 diabetes mellitus with diabetic polyneuropathy E11.[address] [address] 09/18/2023 Jade Black Type 2 diabetes mellitus with diabetic polyneuropathy E11.42 and Neuropathic ulcer with fat layer exposed L98.[address] [address] 10/27/2023 Jade Black Type 2 diabetes mellitus with diabetic polyneuropathy E11.42 and Neuropathic ulcer with fat layer exposed L98.[address] [address] 11/09/2023 Jade Black Type 2 diabetes mellitus with diabetic polyneuropathy E11.42 and Neuropathic ulcer of right foot, limited to breakdown of skin L97.[address] [address] 02/19/2024 Jade Black Type 2 diabetes mellitus with diabetic polyneuropathy E11.42 ; Plantar flexed metatarsal bone of right foot M21.6X1 ; Other hammer toe(s) (acquired), right foot M20.41 ; Other hammer toe(s) (acquired), left foot M20.42 ; Neuropathic ulcer of right foot with fat layer exposed L97.512 and Atherosclerosis of houlton artery of both lower extremities, with unspecified presence of clinical manifestation I70.[address] [address] 03/01/2024 Jade Black Type 2 diabetes mellitus with diabetic polyneuropathy E11.42 ; Neuropathic ulcer of right foot with fat layer exposed L97.512 and Atherosclerosis of houl[place] artery of both lower extremities, with unspecified presence of clinical manifestation I70.[address] [address] 03/21/2024 Jade Black Type 2 diabetes mellitus with diabetic polyneuropathy E11.42 ; Neuropathic ulcer of right foot, limited to breakdown of skin L97.511 and Atherosclerosis of houl[place] artery of both lower extremities, with unspecified presence of clinical manifestation I70.[address] [address] 04/04/2024 Jade Black Xerosis of skin L85. 3 ; Type 2 diabetes mellitus with diabetic polyneuropathy E11.42 ; Neuropathic ulcer of right foot, limited to breakdown of skin L97.511 and Atherosclerosis of houl[place] artery of both lower extremities, with unspecified presence of clinical manifestation I70.[address] [address] 04/18/2024 Jade Black Xerosis of skin L85. 3 ; Type 2 diabetes mellitus with diabetic polyneuropathy E11.42 ; Neuropathic ulcer of right foot, limited to breakdown of skin L97.511 and Atherosclerosis of houl[place] artery of both lower extremities, with unspecified presence of clinical manifestation I70.[address] [address] 05/13/2024 Jade Black [address] [address] 08/10/2023 Jade Black [address] [place] [address] 10/16/2023 Jade Barber [facility] [address] [address] 10/16/2023 Jade Black [facility] [place] [address] [place] [address] 10/23/2023 Jaderikki Blandon [facility] [address] [place] [address] 10/27/2023 Jaderikki Blandon [facility] [address] [address] 05/13/2024 Jade Black Assessments Encounter Date Diagnosis (ICD Code) Assessment Notes Treatment Notes Treatment Clinical Notes Section Notes 06/15/2023 Neuropathic ulcer of right foot, limited to breakdown of skin (ICD-10 - L97.511) Response to treatment - resolved Patient Educated with: WOUND CARE INSTRUCTIONS. pdf (WOUND CARE INSTRUCTIONS. pdf) 07/27/2023 Type 2 diabetes mellitus with diabetic polyneuropathy (ICD-10 - E11.42) 07/27/2023 Plantarflexion deformity of right foot (ICD-10 - M21.6X1) 08/16/2023 Type 2 diabetes mellitus with diabetic polyneuropathy (ICD-10 - E11.42) 08/16/2023 Neuropathic ulcer with fat layer exposed (ICD-10 - L98.492) Patient Educated with: WOUND CARE INSTRUCTIONS. pdf (WOUND CARE INSTRUCTIONS. pdf) 08/31/2023 Type 2 diabetes mellitus with diabetic polyneuropathy (ICD-10 - E11.42) 08/31/2023 Neuropathic ulcer of right foot, limited to breakdown of skin (ICD-10 - L97.511) Response to treatment -,Improvement Patient Educated with: WOUND CARE INSTRUCTIONS. pdf (WOUND CARE INSTRUCTIONS. pdf) 09/18/2023 Type 2 diabetes mellitus with diabetic polyneuropathy (ICD-10 - E11.42) 11/09/2023 Type 2 diabetes mellitus with diabetic polyneuropathy (ICD-10 - E11.42) 11/09/2023 Neuropathic ulcer of right foot, limited to breakdown of skin (ICD-10 - L97.511) Response to treatment -,Improvement Patient Educated with: WOUND CARE INSTRUCTIONS. pdf (WOUND CARE INSTRUCTIONS. pdf) 10/27/2023 Type 2 diabetes mellitus with diabetic polyneuropathy (ICD-10 - E11.42) 02/19/2024 Type 2 diabetes mellitus with diabetic polyneuropathy (ICD-10 - E11.42) l 02/19/2024 Plantar flexed metatarsal bone of right foot (ICD-10 - M21.6X1) l 03/01/2024 Type 2 diabetes mellitus with diabetic polyneuropathy (ICD-10 - E11.42) l 03/01/2024 Neuropathic ulcer of right foot with fat layer exposed (ICD-10 - L97.512) l 03/21/2024 Type 2 diabetes mellitus with diabetic polyneuropathy (ICD-10 - E11.42) l 03/21/2024 Neuropathic ulcer of right foot, limited to breakdown of skin (ICD-10 - L97.511) Response to treatment -,Improvement l 04/04/2024 Xerosis of skin (ICD-10 - L85.3) l 04/18/2024 Xerosis of skin (ICD-10 - L85.3) 04/18/2024 Type 2 diabetes mellitus with diabetic polyneuropathy (ICD-10 - E11.42) 04/04/2024 Type 2 diabetes mellitus with diabetic polyneuropathy (ICD-10 - E11.42) l 03/21/2024 Atherosclerosis of houlton artery of both lower extremities, with unspecified presence of clinical manifestation (ICD-10 - I70.203) l 03/01/2024 Atherosclerosis of houl[place] artery of both lower extremities, with unspecified presence of clinical manifestation (ICD-10 - I70.203) l 10/27/2023 Neuropathic ulcer with fat layer exposed (ICD-10 - L98.492) Patient Educated with: WOUND CARE INSTRUCTIONS. pdf (WOUND CARE INSTRUCTIONS. pdf) 02/19/2024 Other hammer toe(s) (acquired), right foot (ICD-10 - M20.41) Patient Educated with: DIABETIC FOOT CARE INSTRUCTIONS. pdf (DIABETIC FOOT CARE INSTRUCTIONS. pdf) l 09/18/2023 Neuropathic ulcer with fat layer exposed (ICD-10 - L98.492) Patient Educated with: WOUND CARE INSTRUCTIONS. pdf (WOUND CARE INSTRUCTIONS. pdf) 07/27/2023 Neuropathic ulcer with fat layer exposed (ICD-10 - L98.492) Patient Educated with: WOUND CARE INSTRUCTIONS. pdf (WOUND CARE INSTRUCTIONS. pdf) 06/15/2023 Type 2 diabetes mellitus with diabetic polyneuropathy (ICD-10 - E11.42) 07/27/2023 Hypertrophy of bone, right ankle and foot (ICD-10 - M89.371) 02/19/2024 Other hammer toe(s) (acquired), left foot (ICD-10 - M20.42) l 04/04/2024 Neuropathic ulcer of right foot, limited to breakdown of skin (ICD-10 - L97.511) Response to treatment -,Improvement l 04/18/2024 Atherosclerosis of houl[place] artery of both lower extremities, with unspecified presence of clinical manifestation (ICD-10 - I70.203) 04/18/2024 Neuropathic ulcer of right foot, limited to breakdown of skin (ICD-10 - L97.511) Response to treatment -,Improvement 04/04/2024 Atherosclerosis of houlton artery of both lower extremities, with unspecified presence of clinical manifestation (ICD-10 - I70.203) l 02/19/2024 Neuropathic ulcer of right foot with fat layer exposed (ICD-10 - L97.512) l 07/27/2023 Hammer toe of right foot (ICD-10 - M20.41) 02/19/2024 Atherosclerosis of houl[place] artery of both lower extremities, with unspecified presence of clinical manifestation (ICD-10 - I70.203) l 07/27/2023 Other 02/19/2024 Other l Plan Of Treatment Pending Test Test Name Order Date X ray : Ankle, left 2V 05/23/2019 *Uric Acid, Serum 05/23/2019 *Sedimentation Rate-Westergren 0 *Wound Culture 05/01/2017 *Wound Culture 2015 *Wound Culture 12/20/2016 *Wound Culture 03/10/2017 *Wound Culture 10/11/2022 *Wound Culture 08/30/2022 X ray : Foot, left 3V 05/23/2019 59760-Ljfrdfpd Plate 10/08/2018 45835- Debride <25 sq cm 02/27/2019 25470- Debride <25 sq cm 08/30/2018 16235- Debride <25 sq cm 05/14/2019 85865- Debride <25 sq cm 05/15/2017 16431- Debride <25 sq cm 05/29/2017 09876- Debride <25 sq cm 06/12/2017 83557- Debride <25 sq cm 07/03/2017 65368- Debride <25 sq cm 07/31/2017 33499- Debride <25 sq cm 08/17/2017 07449- Debride <25 sq cm 09/01/2017 68854- Debride <25 sq cm 10/13/2017 94513- Debride <25 sq cm 12/14/2017 26236- Debride <25 sq cm 01/30/2018 34239- Debride <25 sq cm 03/27/2017 74857- Debride <25 sq cm 01/09/2017 12017- Debride <25 sq cm 10/07/2016 18808- Debride <25 sq cm 07/28/2014 94246- Debride <25 sq cm 09/01/2014 52789- Debride <25 sq cm 11/28/2022 47408- Debride <25 sq cm 12/14/2022 02960- Debride <25 sq cm 12/22/2022 51242- Debride <25 sq cm 01/26/2023 43788- Debride <25 sq cm 03/01/2023 54064- Debride <25 sq cm 05/18/2023 56994- Debride <25 sq cm 06/15/2023 30775- Debride <25 sq cm 05/05/2022 85153- Debride <25 sq cm 06/13/2022 60313- Debride <25 sq cm 08/01/2022 14276- Debride <25 sq cm 12/09/2021 22673- Debride <25 sq cm 01/18/2022 65924- Debride <25 sq cm 03/08/2022 22118- Debride <25 sq cm 01/02/2020 09157- Debride <25 sq cm 01/31/2020 34316- Debride <25 sq cm 05/11/2020 52118- Debride <25 sq cm 07/20/2020 55751- Debride <25 sq cm 08/19/2020 43287- Debride <25 sq cm 10/05/2020 88312- Debride <25 sq cm 08/04/2021 48945- Debride <25 sq cm 09/17/2021 28444- Debride <25 sq cm 11/09/2021 12551- Debride <25 sq cm 08/31/2023 59246- Debride <25 sq cm 03/21/2024 62981- Debride <25 sq cm 04/04/2024 79993- Debride <25 sq cm 04/18/2024 56031-AQQMHJH SKIN/TISSUE 08/30/2022 58832-NHKMFNI SKIN/TISSUE 03/01/2024 66214-CUSDVEJ SKIN/TISSUE 02/19/2024 05652-IFYZYAC SKIN/TISSUE 02/23/2021 32096-UJPGHZN SKIN/TISSUE 03/25/2021 86197-IJSHTFW SKIN/TISSUE 04/08/2021 63893-UAZWWBO SKIN/TISSUE 04/21/2021 51823-OQYZMZN SKIN/TISSUE 05/05/2021 28359-CFBMWPG SKIN/TISSUE 05/26/2021 72358-BQGPERQ SKIN/TISSUE 04/21/2022 54146-RSWJNZV SKIN/TISSUE 10/21/2022 26561-WLHHJAL SKIN/TISSUE 10/31/2022 39701-LTESXBI SKIN/TISSUE 10/11/2022 46738-GRSJXLV SKIN/TISSUE 07/27/2023 52786-ERXFDZR SKIN/TISSUE 08/16/2023 06109-ZIGQHZV SKIN/TISSUE 09/18/2023 76908-VWQAQFI SKIN/TISSUE 10/27/2023 07708-IKDOAWC SKIN/TISSUE 03/10/2017 87851 I&D ABSCESS- SIMPLE,SINGLE 016 45880 I&D ABSCESS- SIMPLE,SINGLE 017 09653 I&D ABSCESS- SIMPLE,SINGLE 022 97495 I&D ABSCESS- SIMPLE,SINGLE 021 26811- I&D ABSCESS-COMPLICATED,MULTI 05/2016 32184- I&D ABSCESS-COMPLICATED,MULTI 02/2018 63712-VVBS SKIN LESIONS, OVER 4 03/26/19 19 62077-FKWZ SKIN LESIONS, OVER 4 12/29/19 18 95913-SVFL SKIN LESIONS, OVER 4 05/14/19 20 33751-OEOU SKIN LESIONS, OVER 4 02/28/20 74066-YDGI SKIN LESIONS, OVER 4 12/13/19 81869-FQFU SKIN LESIONS, OVER 4 10/09/19 36673-INAS SKIN LESIONS, OVER 4 07/18/19 13968-DMRB SKIN LESIONS, OVER 4 07/21/19 15632-LWUC SKIN LESIONS, OVER 4 05/11/19 69486-WAYX SKIN LESIONS, OVER 4 01/02/20 72210-YFZM SKIN LESIONS, OVER 4 07/25/19 12803-DTKB SKIN LESIONS, OVER 4 10/03/19 78169-XKAK SKIN LESIONS, OVER 4 08/28/19 01482-YDVB SKIN LESIONS, OVER 4 11/10/19 20917-ITIC SKIN LESIONS, OVER 4 05/27/19 87361-QSIE SKIN LESIONS, OVER 4 11/09/19 19498-ZIFO SKIN LESIONS, OVER 4 06/15/19 32393-CXOJ SKIN LESIONS, OVER 4 03/30/19 24 66530-VCZC SKIN LESIONS, OVER 4 11/01/19 03831-CWUE SKIN LESIONS, OVER 4 08/02/19 34844-FHKJ SKIN LESIONS, OVER 4 04/21/19 59927-NEYQ SKIN LESIONS, OVER 4 01/19/20 60057-BISG SKIN LESIONS, OVER 4 02/19/20 11888-YZDX SKIN LESIONS, OVER 4 08/31/19 54484-HEBO SKIN LESIONS, 2 TO 4 10/06/19 86743-FZZP SKIN LESIONS, 2 TO 4 02/24/20 12911-EAYJ SKIN LESIONS, 2 TO 4 06/10/19 38243-AGQQ SKIN LESIONS, 2 TO 4 10/14/19 18 02995-TVZS SKIN LESIONS, 2 TO 4 08/01/19 18 64191-NECT SKIN LESIONS, 2 TO 4 05/30/19 18 25623-LPRR SKIN LESIONS, 2 TO 4 07/25/19 14 53003-JPPF SKIN LESIONS, 2 TO 4 01/28/20 14 39502-MYXC SKIN LESIONS, 2 TO 4 07/29/19 15 12873-DWBR SKIN LESIONS, 2 TO 4 02/24/20 15 44986-RYEE SKIN LESIONS, 2 TO 4 10/12/19 16 34536-BHNB SKIN LESIONS, 2 TO 4 03/27/19 18 97316-OOYH SKIN LESIONS, 2 TO 4 07/12/19 17 25795-WSWP SKIN LESIONS, 2 TO 4 12/21/19 17 47718-MRFZ SKIN LESIONS, 2 TO 4 10/08/19 17 29148-Gloo. Subungual Hematoma 7 19158-Qkau. Subungual Hematoma 6 74025-Jqfh. Subungual Hematoma 5 02423-FVJR NAIL(S) 01/27/2014 91781-VFOB NAIL(S) 07/24/2013 55362-EZCN NAIL(S) 07/28/2014 14459-TFXK NAIL(S) 2015 08507-SZKI NAIL(S) 02/23/2015 49608-IVSQ NAIL(S) 07/11/2016 82689-FGKN NAIL(S) 10/07/2016 29907-SBLX NAIL(S) 02/27/2019 79913-FJZA NAIL(S) 02/23/2021 90161-CEYG NAIL(S) 10/05/2020 55175-SOQW NAIL(S) 07/20/2020 48452-DZIJ NAIL(S) 05/11/2020 78680-HJFJ NAIL(S) 10/03/2019 63098-IVDH NAIL(S) 01/02/2020 87177-TXSH NAIL(S) 05/26/2021 30707-PQIE NAIL(S) 08/27/2021 67107-RKKY NAIL(S) 01/18/2022 84019-KRGF NAIL(S) 04/21/2022 82806-PMKE NAIL(S) 08/01/2022 92655-DKTF NAIL(S) 10/31/2022 E7933-AQQEXJNN DYSTROPHIC NAILS ANY # X2235-EDUICNWY DYSTROPHIC NAILS ANY # Q0104-IQVWENCD DYSTROPHIC NAILS ANY # D0522-GCBZMWPS DYSTROPHIC NAILS ANY # N9265-ESLWVRRK DYSTROPHIC NAILS ANY # P0656-VGXJVADC DYSTROPHIC NAILS ANY # K7193-OOEFTKWX DYSTROPHIC NAILS ANY # M7127-PWPBRDAS DYSTROPHIC NAILS ANY # Z4227-YLPWOINJ DYSTROPHIC NAILS ANY # K8837-ZQLHEVSH DYSTROPHIC NAILS ANY # U6966-CAMOCKZX DYSTROPHIC NAILS ANY # Q5601-LMQMMRVO DYSTROPHIC NAILS ANY # P0736-TCLPVXHB DYSTROPHIC NAILS ANY # Z7365-FOPVTXID DYSTROPHIC NAILS ANY # Z4323-QDQAAREC DYSTROPHIC NAILS ANY # E3914-IPGYTJEV DYSTROPHIC NAILS ANY # Y3078-EBWBIMAN DYSTROPHIC NAILS ANY # L7593-HNJFDRQH DYSTROPHIC NAILS ANY # 88476-LXMPQVWL OF HEMATOMA/FLUID 022 Insurance Providers Payer Name Payer Address Payer Phone Subscriber Number Group Number Insured Name Patient Relationship to Insured Coverage Start Date Coverage End Date [employer]vantage [address] [facility] [place] [address] [id number] Kirby Mulligan Self - patient is the insured Medical (General) History Medical History History ICD Code type II diabetes Chicken pox ultra sound Scan of the veins (Both) Surgical History Surgery Date(Month/Year) appendectomy colonoscopy 12/07/2017 Hospitalization History Reason Date(Month/Year) [facility]- took a fall 03/18/23 [facility] ER- arthritis right hip , sharp pains 10/2019
--- OUTSIDE RECORDS SUMMARY | 2024-05-21 12:24 | XMS_ITS ---
Author Organization [facility] Address [address] [place] [address] Care Team Providers Care School Crossing Guard Name Role Phone Elidia Rosa MD Primary Care Provider Unavailabl e Black, Jade Unavailable [phone] REASON FOR VISIT No show fee Encounters Encounter Location Date Provider Diagnosis [facility] [address] [place] [address] 05/13/2024 Jade Black Plan Of Treatment No Information Progress Notes * Mic MULLIGANOB:[birth year] (83 yo M)Acc No.[id number]:05/13/2024 Patient:?Kirby MULLIGAN :1940???Age:83 Y???Sex:Male Address:[address] [place] [address], [address] * true * Date:? Generated for Nicole griffith/Juan/eTransmitting on:?05/21/2024 12:23 PM EST
== END 2024-05-21 12:09 | disposition home or self-care (01) ==
PROVIDERS: Absent Provider Physician Assistant Medical; PCP Internal Medicine; Visit Provider Physician Assistant Medical
DX: G20.A1 Parkinson's disease without dyskinesia, without mention of fluctuations (principal); R06.83 Snoring; R09.89 Other specified symptoms and signs involving the circulatory and respiratory systems; J11.1 Influenza due to unidentified influenza virus with other respiratory manifestations; H91.93 Unspecified hearing loss, bilateral
CPT/HCPCS: 99214

== ENCOUNTER → 2024-05-21 10:14 | Outpatient (BNVA) | payer OTHER, SELFPAY | PROVIDERS: Absent Provider Physician Assistant Medical; PCP Internal Medicine; Visit Provider Physician Assistant Medical ==

== ENCOUNTER 2024-05-22 11:38 | Outpatient (REF) | payer OTHER, SELFPAY ==
--- NOTE | ~2024-05-22 | XR_ITS ---
EXAMINATION: XR CHEST CLINICAL INFORMATION: R09.89 - Other specified symptoms and signs involving the circulatory an... COMPARISON: None available. TECHNIQUE: 2 views FINDINGS: The lungs are expanded with reticular nodular changes in the left lower lobe and lingula and minimal reticular changes in the right middle lobe and right lower lobe. No pleural effusion or consolidation seen. Minimal reticular changes in the right lung apex. Heart size is enlarged. Pulmonary vascularity is normal. There is moderate spondylosis dorsal spine. No aggressive lytic or sclerotic process seen. XR/XR chest 2V IMPRESSION: No acute consolidation. Reticular nodular changes in left lung base, radicular changes in the right lower lobe and right lung apex. Question chronic inflammatory changes or scarring. Correlate with outpatient CT chest. Electronically signed by: Chester Grimes MD 05/22/2024 11:59 AM J[facility]
--- OUTSIDE RECORDS SUMMARY | 2024-05-22 14:08 | XMS_ITS ---
Author Organization [facility] Address [address] [place] [address] Care Team Providers Care Computer Meteorologist Name Role Phone Elidia Rosa MD Primary Care Provider Unavailabl e Black, Jade Unavailable [phone] REASON FOR VISIT No show Encounters Encounter Location Date Provider Diagnosis [facility] [address] [place] [address] 05/13/2024 Jade Black Plan Of Treatment No Information Progress Notes * OHALEK Wesley:[birth year] (83 yo M)Acc No.[id number]:05/13/2024 Patient:?Kirby MULLIGAN :1940???Age:83 Y???Sex:Male Address:[address] [place] [address], [address] * * Date:?
--- OUTSIDE RECORDS SUMMARY | 2024-05-22 14:09 | XMS_ITS ---
Author Organization [facility] Address [address] [place] [address] Care Team Providers Care Space Planner Name Role Phone Elidia Rosa MD Primary Care Provider Unavailabl e Black, Jade Unavailable [phone] REASON FOR VISIT No show fee Encounters Encounter Location Date Provider Diagnosis [facility] [address] [place] [address] 05/13/2024 Jade Black Plan Of Treatment No Information Progress Notes * Mic MULLIGANOB:[birth year] (83 yo M)Acc No.[id number]:05/13/2024 Patient:?Kirby MULLIGAN :1940???Age:83 Y???Sex:Male Address:[address] [place] [address], [address] * true * Date:? Generated for Nicole griffith/Juan/eTransmitting on:?05/22/2024 02:08 PM EST
== END 2024-05-22 11:39 | disposition home or self-care (01) ==
LOC: HO.HMGCX 11:38
PROVIDERS: PCP Internal Medicine; Visit Provider Physician Assistant Medical
DX: R09.89 Other specified symptoms and signs involving the circulatory and respiratory systems (principal); J11.1 Influenza due to unidentified influenza virus with other respiratory manifestations
CPT/HCPCS: 71046

== ENCOUNTER → 2024-05-22 11:41 | Outpatient (BNV) | payer OTHER, SELFPAY | PROVIDERS: PCP Internal Medicine; Visit Provider Radiology Diagnostic Radiology | DX: R91.1 Solitary pulmonary nodule (principal) | CPT/HCPCS: 71046 ==

== ENCOUNTER 2024-11-19 13:04 | Outpatient (AMB) | payer OTHER, SELFPAY ==
[2024-11-19 13:05] VITALS: BP 106/64; PULSE 94; O2SAT 98; BMI 24.3
--- NOTE | 2024-11-19 13:05 | MHC.OFFVIS ---
Vital Signs 11/19/24 13:05 Height 5 ft 10 in Weight 169 lb 6 oz BMI 24.3 BP 106/64 Blood Pressure Location Rt brachial Position Sitting Pulse 94 Pulse Source Pulse Oximeter Pulse Oximetry (%) 98 Oxygen Delivery Method Room Air Intake Visit Reasons: 6 mnts Intake Note: Patient presents follow up Parkinson's. X-ray in chart. Accompanied by: Self / Same As Patient Allergies No Known Allergies (No Known Allergies*) Allergy (Verified 11/19/24 13:09) HPI Comments Details: 84 y/o male with Parkinsons disease comes for follow up. He is a [employer] with many toxin exposure in [facility]. Needs hearing aide. No falls since last visit. He feels weaker and slower. His Sinemet 25/100 was increased to 2-1-2-1 for past week and his main symptom is RUE tremors. Sinemet schedule 2 at Breakfast 9am, 1 at 3pm, 2 at 7pm with dinner, 1 at bedtime around 10pm. Discussed the importance of taking this medication with a snack and no protein products with daughter and patient. He denies memory issues. He denies REM behavior disorder. He snores loudly and tosses and turns all night along with coughing up phlegm, uses melatonin 3mg and it helps with sleep. He will sleep in his chair and c/o LBP, has fragmented sleep due to 3 bathroom breaks 1am, 3am, 7am. He has dry mouth due to head congestion, discussed taking nasal saline, zinc, vit d. His blood sugars are controlled with metformin 850mg PO tid, hg a1c 7.3. He declined taking eliquis due to insurance costs, he is on warfarin 2.5mg po bid. His mood is stable. He is motivated. He denies drooling, or dysphagia, his voice is soft. He is slow to dress, has a walk in shower with bars, use utensils, however weakness when opening jars. His handwriting is legible. Gait is slower, with stooped posture, balance is off due to weakness in lower extremities. He has occasional constipation, takes prunes and prune juice, and Miralax. He denies AH/VH. No dizziness since his lisinopril was discontinued. He helps his with household chairs, and walks around the house. He is still driving. [facility] Medical History Parkinson's disease without dyskinesia Snoring Arthritis Diabetes Surgical History History of appendectomy Social History Alcohol intake: never Patient Tobacco Use Status: Never used Tobacco Physical Exam Vital Signs: Last Vital Signs Pulse 94 11/19/24 13:05 BP 106/64 11/19/24 13:05 Pulse Ox 98 11/19/24 13:05 Oxygen Delivery Method Room Air 11/19/24 13:05 BMI result Body Mass Index 24.3 Const Orientation/consciousness: patient oriented x3 Eyes Pupils: Equal, round and reactive pupils present Neuro Other: moderate decreased blink and facial expression No tremors Chandan Upper ext cog wheel rigidity L>R FFM and foot taps decreased moderately L>R Gait- slow, no arm swing on left stooped posture Speech- hypophonia and dysprosody General: patient oriented x3, moves all extremities and no focal motor deficits Cranial nerves: Yes Facial sensation intact/muscles of mastication intact, Yes Equal, round and reactive pupils present, Yes Bilaterally intact EOM present, Yes Nystagmus not present, Yes Normal facial strength present, Yes Midline tongue present, Yes Symmetric palate elevation present and Yes Ability to bilaterally elevate shoulders present Cognition (Neuro): normal cognition Motor exam (neuro): 5/5 motor strength present throughout Deep tendon reflexes (DTR's): Right triceps reflex intensity grade: 2+, Left triceps reflex intensity grade: 2+, Rt Biceps (C5, C6): 2+, Left biceps reflex intensity grade: 2+, Right brachioradialis reflex intensity grade: 2+, Left brachioradialis reflex intensity grade: 2+, Right patellar reflex intensity grade: 2+ and Left patellar reflex intensity grade: 2+ Coordination: [id number] test normal Psych Appearance: well kempt Attitude: cooperative Thought process: Normal thought process present Results Reviewed Results Reviewed: XR/XR chest 2V IMPRESSION: No acute consolidation. Reticular nodular changes in left lung base, radicular changes in the right lower lobe and right lung apex. Question chronic inflammatory changes or scarring. Correlate with outpatient CT chest. Assessment & Plan Assessment & Plan (1) Excessive daytime sleepiness: Code(s): G47.19 - Other hypersomnia Category: Medical (2) Parkinson's disease without dyskinesia: Code(s): G20.A1 - Parkinson's disease without dyskinesia, without mention of fluctuations Category: Medical Qualifiers: Fluctuating manifestations: unspecified whether manifestations fluctuate Qualified Code(s): G20.A1 - Parkinson's disease without dyskinesia, without mention of fluctuations (3) Snoring: Code(s): R06.83 - Snoring Category: Medical (4) Chest congestion: Code(s): R09.89 - Other specified symptoms and signs involving the circulatory and respiratory systems Category: Medical (5) Hearing difficulty of both ears: Code(s): H91.93 - Unspecified hearing loss, bilateral Category: Medical [facility] Parkinsons disorder Sinemet 25/100 2 tabs at 9am, 1 tab 3pm, 2 tab at 7pm, 1 tab at 10pm, pt. education no meat products with this medication. Do not take this medication with other medications. May f/u with Parkinsons Support group weekly at the [facility]. PSG to evaluate Sleep difficulties and may continue Melatonin from 3mg po at bedtime to 6mg po at bedtime. Discussed fall prevention and using assisted devices and PT as needed. Constipation increase fluid intake, and prune juice, miralax as needed. Hearing deficits, referred to the [place] or [facility] for free audiometry and hearing aides, as hearing deficits can lead to cognitive decline. Request labs/ records from his providers, and diagnoses of PD with datscan? F/u in 3 months Orders: Orders RT PSG in-lab sleep study Today G47.19 - Other hypersomnia Patient Instructions: Sleep Hygiene provided: set a scheduled bedtime and wake time to help regulate the circadian rhythm and balance the release of pituitary hormones. Sleep in a dark room, temperatures below 68 degrees, and no devices n bed. Limit caffeinated products 6 hours prior to bed, and limit fluids 2-4 hours prior to bed. Gentle night yoga, diffusing essential oils, and playing soft music can be relaxing. Coding Level of Care Code Est Pt Level 4 (94343) Diagnoses Excessive daytime sleepiness G47.19 Parkinson's disease without dyskinesia, unspecified whether manifestations fluctuate G20.A1 Fluctuating manifestations: unspecified whether manifestations fluctuate Snoring R06.83 Chest congestion R09.89 Hearing difficulty of both ears H91.93
== END 2024-11-19 13:54 | disposition home or self-care (01) ==
LOC: HO.HSMS 13:05
PROVIDERS: PCP Internal Medicine; Visit Provider Physician Assistant Medical
DX: G47.19 Other hypersomnia (principal); G20.A1 Parkinson's disease without dyskinesia, without mention of fluctuations; R06.83 Snoring; R09.89 Other specified symptoms and signs involving the circulatory and respiratory systems; H91.93 Unspecified hearing loss, bilateral
CPT/HCPCS: 99214